=== PATIENT | male | born 1965 | race Caucasian/White ===

== ENCOUNTER 2020-04-19 16:02 | Emergency (ER) | payer BC ==
[~2020-04-19] VITALS: Ht 177.8 cm; Wt 72.0 kg
[2020-04-19 16:12] VITALS: BP 135/86
[2020-04-19 17:11] LABS: BASOPHILS % (AUTO) 0.4 % (0-1); EOSINOPHILS # (AUTO) 0.2 X10'3 (0-0.9); EOSINOPHILS % (AUTO) 1.7 % (0-6); HEMATOCRIT 43.6 % (42.0-52.0); HEMOGLOBIN 14.9 g/dl (14.0-17.9); LYMPHOCYTES # (AUTO) 2.5 X10'3 (1.1-4.8); LYMPHOCYTES % (AUTO) 27.5 % (21-51); MEAN CORPUSCULAR HEMOGLOBIN 32.1 PG (27.0-31.0); MEAN CORPUSCULAR HGB CONC 34.2 g/dL (33.0-36.5); MEAN CORPUSCULAR VOLUME 93.7 FL (78-98); MONOCYTES # (AUTO) 0.6 X10'3 (0-0.9); MONOCYTES % (AUTO) 6.7 % (2-12); NEUTROPHILS # (AUTO) 5.7 X10'3 (1.8-7.7); NEUTROPHILS % (AUTO) 63.7 % (42-75); PLATELET COUNT 325 X10'3 (140-440); RED BLOOD COUNT 4.65 X10'6 (4.70-6.10); RED CELL DISTRIBUTION WIDTH 12.7 % (11.5-14.5)
[2020-04-19 17:19] LABS: ANION GAP 14 (8-16); BILIRUBIN,TOTAL 0.4 MG/DL (0.1-1.0); BLOOD UREA NITROGEN 18 MG/DL (7-18); BUN/CREATININE RATIO 15.8 (5.4-32.0); CHLORIDE 104 MMOL/L (99-107); CREATININE 1.14 MG/DL (0.60-1.10); SODIUM 143 MMOL/L (135-145); TOTAL CARBON DIOXIDE 25.2 MMOL/L (24-32); eGFR 67 ML/MIN
[2020-04-19] MEDS ORDERED: ketorolac trometh inj. 60 MG/2 ML VIAL IM ONE (17:40)
[2020-04-19] MEDS ORDERED: ondansetron 4mg rapidly disintigrating tab PO ONE (17:40)
[2020-04-19] MEDS ORDERED: HYDROcodone/acetaminophen 5mg/325mg tablet PO ONE (17:40)
[2020-04-19 17:58] LABS: ALANINE AMINOTRANSFERASE 21 U/L (12-78); ALBUMIN 4.6 G/DL (3.4-5.0); ALBUMIN/GLOBULIN RATIO 1.4 (1.1-1.5); ALKALINE PHOSPHATASE 67 IU/L (46-116); ASPARTATE AMINO TRANSFERASE 7 U/L (10-37); CALCIUM 9.4 MG/DL (8.5-10.1); GLUCOSE 119 MG/DL (70-104); POTASSIUM 3.8 MMOL/L (3.5-5.1); TOTAL PROTEIN 7.9 G/DL (6.4-8.2)
[2020-04-19 18:16] LABS: CLARITY,URINE CLEAR (Clear); COLOR,URINE YELLOW (Yellow); GLUCOSE, URINE NEGATIVE (Neg); KETONES,URINE TRACE mg/dl (Neg); LEUKOCYTE ESTERASE ,URINE NEGATIVE (Neg); NITRITES, URINE NEGATIVE (Neg); OCCULT BLOOD,URINE NEGATIVE (Neg); PH,URINE 8.5 (4.8-8.0); PROTEIN,URINE NEGATIVE (Neg)
[2020-04-19 18:17] LABS: UA COLLECTION TYPE CLN CATCH MIDSTREAM
[2020-04-19] MEDS ORDERED: FLO0.4C PO (18:49)
[2020-04-19] MEDS ORDERED: ONDA4TAB6 PO (18:49)
[2020-04-19] MEDS ORDERED: HYDR-3965 PO (18:49)
== END 2020-04-19 19:04 | disposition home or self-care (01) ==
LOC: ER 16:02
DX: N20.0 Calculus of kidney (principal); R10.32 Left lower quadrant pain; R11.0 Nausea; Z79.899 Other long term (current) drug therapy
CPT/HCPCS: 36415; 74176; 80053; 81003; 85025; 96372; 99284; J1885

== ENCOUNTER 2023-09-10 08:45 | Outpatient (CLI) | payer MEDICAID ==
[~2023-09-10 08:45] MED LIST: ONDA4TAB6 PO
== END 2023-09-10 23:59 | disposition home or self-care (01) ==
LOC: RAD 08:45
PROVIDERS: ATTEND Physician Assistant
DX: M54.50 Low back pain, unspecified (principal)
CPT/HCPCS: 72100